=== PATIENT | female | born 1990 | race Caucasian/White ===

== ENCOUNTER 2017-07-12 15:15 | Emergency (ER) | payer MEDICAID ==
[2017-07-12 15:19] VITALS: TEMP 97.7
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
[2017-07-12 16:57] VITALS: BP 125/86; PULSE 65; RESP 15; O2SAT 95
== END 2017-07-12 16:56 | disposition home or self-care (01) ==
DX: S62.366A Nondisplaced fracture of neck of fifth metacarpal bone, right hand, initial encounter for closed fracture (principal); W22.8XXA Striking against or struck by other objects, initial encounter